=== PATIENT | male | born 1995 | race Caucasian/White ===

== ENCOUNTER 2024-09-02 15:55 | Emergency (ER) | payer MEDICAID ==
[~2024-09-02] VITALS: Ht 182.9 cm; Wt 78.0 kg
[2024-09-02 15:59] VITALS: O2SAT 96
[2024-09-02 16:37] VITALS: TEMP 36.83628
[2024-09-02] MEDS: SODIUM CHLORIDE 0.9% 1,000 ML IV ONE (16:45)
[2024-09-02 18:04] LABS: BASOPHILS % 0.4 % (0.0-2.0); EOSINOPHILS % 0.4 % (0.0-5.0); HEMATOCRIT. 43.2 % (42.0-52.0); HEMOGLOBIN. 14.9 g/dL (14.0-18.0); LYMPHOCYTES % 9.1 % (20.0-50.0); MEAN CORPUSCULAR HEMOGLOBIN 30.7 pg (28.0-32.0); MEAN CORPUSCULAR HGB CONC 34.5 g/dL (31.0-37.0); MEAN CORPUSCULAR VOLUME 88.9 fL (80.0-94.0); MEAN PLATELET VOLUME 8.6 fl (7.4-10.4); MONOCYTES % 8.1 % (2.0-8.0); PLATELET 226 x1000/uL (130-400); RED BLOOD CELL COUNT 4.86 mill/uL (4.7-6.1); RED CELL DISTRIBUTION WIDTH 13.2 % (11.6-14.6); WHITE BLOOD COUNT 10.7 x1000/uL (4.5-11.0)
[2024-09-02 18:14] LABS: CHLORIDE 103 mEq/L (98-107); POTASSIUM 3.7 mEq/L (3.5-5.1); SODIUM 138 mEq/L (136-145)
[2024-09-02 18:15] LABS: CARBON DIOXIDE 27 mEq/L (21-32)
[2024-09-02 18:20] LABS: CREATININE 1.1 mg/dL (0.6-1.3); GLUCOSE 109 mg/dL (70-105)
[2024-09-02 18:21] LABS: ETHANOL BLOOD 130 mg/dL (<10); TROPONIN I HIGH SENSITIVITY 6 ng/L (3.0-53); UREA NITROGEN BLOOD 12 mg/dL (9-23)
[2024-09-02 18:22] LABS: ALANINE AMINOTRANSFERASE 64 IU/L (10-49); ALBUMIN 4.2 g/dL (3.2-4.8); ASPARTATE AMINOTRANSFERASE 34 IU/L (<34)
[2024-09-02 18:23] LABS: BILIRUBIN DIRECT 0.2 mg/dL (<=3.0); BILIRUBIN TOTAL 0.7 mg/dL (0.1-1.0); PROTEIN TOTAL 7.2 g/dL (6.0-8.3)
[2024-09-02 18:52] LABS: PROTHROMBIN TIME 11.1 sec (9.6-11.0)
[2024-09-02 19:28] LABS: TROPONIN I HIGH SENSITIVITY 5 ng/L (3.0-53)
[2024-09-02 20:37] VITALS: BP 146/74; PULSE 120; RESP 16; O2SAT 97
== END 2024-09-02 20:38 | disposition home or self-care (01) ==
LOC: ER 15:55
DX: R41.82 Altered mental status, unspecified (principal); F41.9 Anxiety disorder, unspecified; I49.9 Cardiac arrhythmia, unspecified; Z98.890 Other specified postprocedural states
CPT/HCPCS: 80076; 80048; 80320; 83690; 85025; 85610; 84484; 36415; 71045; 70450; 93005; 96360; 96361; 99291; J7030; G0480